=== PATIENT | male | born 1980 | race Two or more races ===

== ENCOUNTER 2020-05-03 21:13 | Emergency (ER) | payer OTHER ==
[~2020-05-03] VITALS: Ht 152.4 cm; Wt 84.8 kg
[2020-05-03 21:13] VITALS: BP 138/87
--- NOTE | 2020-05-03 21:23 | NUR ---
EDVIN [phone] DAUGHTER
[2020-05-03] MEDS ORDERED: ONDANSETRON 4 MG TAB.RAPDIS ONE (21:48)
[2020-05-03] MEDS ORDERED: MECLIZINE HCL 25 MG TABLET ONE (21:48)
[2020-05-03] MEDS ORDERED: ONDANSETRON 4 MG TAB.RAPDIS SL ONE (22:00)
[2020-05-03] MEDS ORDERED: MECLIZINE HCL 12.5 MG TABLET PO ONE (22:00)
--- NOTE | 2020-05-03 22:53 | NUR ---
Patient discharged to home in stable condition. Written and verbal after care instructions given. Patient verbalizes understanding of instruction.pt. ambulatory with a steady gait
== END 2020-05-03 22:55 | disposition home or self-care (01) ==
LOC: ER 21:15
DX: F10.129 Alcohol abuse with intoxication, unspecified (principal); R11.2 Nausea with vomiting, unspecified; R42 Dizziness and giddiness; Y90.9 Presence of alcohol in blood, level not specified
CPT/HCPCS: 82962; 99283; J8597; Q0162